=== PATIENT | female | born 2000 | race Caucasian/White ===

== ENCOUNTER 2022-04-25 00:14 | Emergency (ER) | payer OTHER ==
[~2022-04-25] VITALS: Ht 154.9 cm; Wt 93.2 kg
[2022-04-25] MEDS ORDERED: ONDANSETRON HCL 4MG/2ML INJ IV STA (01:17)
[2022-04-25] MEDS ORDERED: MORPHINE SULFATE 4 MG/ML CPJ (NOT FOR IM USE) IV STA (01:17)
[2022-04-25] MEDS ORDERED: BACITRACIN ZINC OINT UDPKT TOP NR (01:30)
[2022-04-25] MEDS ORDERED: BACITRACIN 15GM TUBE TOP ONE ×2 (01:30)
[2022-04-25] MEDS ORDERED: HYDR-4001 MT (02:36)
[2022-04-25] MEDS ORDERED: MORPHINE SULFATE 4 MG/ML CPJ (NOT FOR IM USE) IV ONE (02:45)
[2022-04-25 03:00] VITALS: BP 123/72
== END 2022-04-25 03:24 | disposition home or self-care (01) ==
LOC: ER 00:14
DX: T20.00XA Burn of unspecified degree of head, face, and neck, unspecified site, initial encounter (principal); T22.00XA Burn of unspecified degree of shoulder and upper limb, except wrist and hand, unspecified site, initial encounter; X12.XXXA Contact with other hot fluids, initial encounter; Y93.89 Activity, other specified; Y92.010 Kitchen of single-family (private) house as the place of occurrence of the external cause
CPT/HCPCS: 81025; 96374; 96375; 96376; 99284; J2270; J2405